=== PATIENT | female | born 1960 | race Caucasian/White ===

== ENCOUNTER 2016-06-29 18:47 | Inpatient (IN) | payer OTHER ==
[~2016-06-29] VITALS: Ht 167.6 cm; Wt 108.4 kg
[~2016-06-29 18:47] MED LIST: IBUP-1152 PO
--- NOTE | 2016-06-29 18:49 | ED.REPORT ---
HPI-Dyspnea / Wheezing Date of Service June 29, 2016 ED Provider: Prashanth Lynn Patient is a 55 year old female with a hx of COPD and HTN who presents to the ED via EMS complaining of shortness of breath onset 3 days ago but worse this morning. Her symptoms are exacerbated by any exertion. When medics arrived her O2 sats were in the 80's, increased to 90's with a DuoNeb, and decreased to the 80's again upon standing and walking to the stretcher. She denies nausea, diaphoresis, chest pain, or any other symptoms. She had a total of 2 DuoNebs en route. She saw her PCP on 3 days ago and was given a Zpack. She has never had an exacerbation this bad before. Nursing Notes Stated Complaint: SOB Nursing Notes Reviewed: Yes Allergies: Coded Allergies: Penicillins (Verified Allergy, Intermediate, Hives, 12/11/08) latex (Verified Allergy, Mild, Rash,redness, 12/11/08) Scheduled Beclomethasone Dipropionate (Qvar) 8.7 Gm Aer.w.adap 2 PUFF INHALATION BID 80 MCG Losartan/HCTZ 100-25 mg (Losartan/HCTZ 100-25 mg) 1 Each Tablet 1 TABLET PO DAILY Scheduled PRN Albuterol HFA (Proair HFA) 8.5 Gm Hfa.aer.ad 2 PUFFS INHALATION Q4H PRN PRN For Shortness of Breath General Time Seen by MD: 18:48 Chief Complaint Shortness of breath Hx Obtained From: Patient, EMS Arrived By: Ambulance Past Medical History Past Medical History Reports: COPD, Hypertension, Denies: Congestive heart failure, Coronary artery disease Smoking History Current Every Day Smoker Review of Systems Respiratory: Reports: Shortness of breath Cardiovascular: Denies: Chest pain, Palpitations Skin: Denies Diaphoresis Complete sys rev & neg: except as marked. GI: Denies: Nausea Physical Exam Initial Vital Signs Vital Signs (First) Date Time Temp Pulse Resp B/P Pulse Ox O2 Delivery O2 Flow Rate FiO2 06/29/16 19:05 115 22 93 Aerosol Mask 7 06/29/16 19:29 36.9 202/108 Initial VS: Reviewed Head / Eyes: Atraumatic, Normocephalic Abdomen / GI: Soft, Non-tender Skin: Warm, Dry Neurologic: Alert, Oriented, Nonfocal Psychiatric: Mood/affect normal, Behavior normal, Normal thought content General/Constitutional: Awake, Alert, Well developed Distress / Hydration: Positive: Distress moderate Behavior: Positive: Restless Neck: Supple, Full range of motion, No JVD Resp Distress / Stridor: Positive: Resp distress moderate, Speaks words only Wheezing / Retractions: Positive: Wheezing expiratory (Diffuse ) 2 word sentences Cardiovascular: Regular rhythm, Heart sounds NL, No gallop, No murmurs, No rubs Heart Rate / Rhythm: Positive: Tachycardia Lower Ext Edema: Positive: Bilateral 1+ Interpretation & Diagnostics Lab Results Interpretation Result Diagram: 06/29/164 06/29/164 Test 06/29/16 18:54 White Blood Count 22.5th/mm3 (3.8-10.1) Red Blood Count 4.29mil/mm3 (3.90-5.20) Hemoglobin 13.5g/dL (12.0-15.6) Hematocrit 41.9% (35.0-46.0) Mean Corpuscular Volume 97.7fL (81-100) Mean Corpuscular Hemoglobin 31.5pg (27.0-35.0) Mean Corpuscular Hemoglobin Concent 32.2% (32.0-37.0) Red Cell Distribution Width 13.1% (12.3-15.4) Platelet Count 333bil/L (150-400) Neutrophils (%) (Auto) 46.3% (40-74) Lymphocytes (%) (Auto) 41.3% (14-46) Monocytes (%) (Auto) 9.8% (4-12) Eosinophils (%) (Auto) 0.8% (0-5) Basophils (%) (Auto) 0.6% (0-3) Hold Purple Top Tube Received (Received) Sodium Level 138mEq/L (134-144) Potassium Level 4.6mEq/L (3.5-5.2) Chloride Level 99mEq/L (97-108) Carbon Dioxide Level 22mmol/L (18-29) Blood Urea Nitrogen 23mg/dL (6-24) Creatinine 0.72mg/dL (0.57-1.00) Estimat Glomerular Filtration Rate 121mL/min (>59) Glucose Level 117mg/dL (60-99) Calcium Level 9.6mg/dL (8.5-10.1) Phosphorus Level 4.9mg/dL (2.5-4.9) Total Bilirubin 0.2mg/dL (0.0-1.2) Aspartate Amino Transf (AST/SGOT) 31U/L (0-50) Alanine Aminotransferase (ALT/SGPT) 38U/L (0-32) Alkaline Phosphatase 64U/L (25-150) Troponin T < 0.010ug/L (0.0-0.011) Pro-B-Type Natriuretic Peptide 350.1pg/mL (0-249) Total Protein 7.5g/dL (6.4-8.4) Albumin 4.1g/dL (3.4-5.0) Hold [place] Top Tube Received (Received) Lab Results Interpretation: Flu neg ECG Interpretation ECG Interpretation: Sinus tachy rate 114 Time: 18:56 Interpreted by: ED physician X-Ray Chest Interpretation Chest Xray Interpretation: IMPRESSION: No acute process. Dictated by: Nedra Torres M.D. on 06/29/2016 at 19:17 Approved by: Nedra Torres M.D. on 06/29/2016 at 19:17 View: Portable, 1 view Interpretation / Wet Read by: Interpret - Radiologist Re-Eval/Medical Decision Med Decision/Clinical Course She came to the emergency department in severe distress. Initial measures to ameliorate her symptoms were only modestly effective. We administered some narcotic and a benzodiazepine to try to calm her coughing and anxiety associated with breathlessness and her severe hypertension. Ultimately magnesium sulfate was administered. The venous blood gas was modestly reassuring. Epinephrine, though prepared, was never administered. Finally, she seemed somewhat modestly improved at the time she was moved to the floor. Re-Evaluation/Progress #1: Time of Eval: 19:19 Re-Evaluation/Progress Note: Rechecked patient. She is feeling a little bit better since she arrived. Re-Evaluation/Progress #2: Time of Eval: 19:46 Re-Evaluation/Progress Note: Rechecked patient. Her O2 saturation is 88-90 on 8L. Her cough is impacting her breathing. Re-Evaluation/Progress #3: Time of Eval: 20:09 Re-Evaluation/Progress Note: Rechecked pt. She is slightly improved. Holding the epi and administering Mag Re-Evaluation/Progress #4: Time of Eval: 20:33 Re-Evaluation/Progress Note: Rechecked pt. Discussed plan for admission. Patient understands and agrees with plan. All questions addressed at this time. Consultation : Referral / Consult Name: Dorothy Jackson DO Consulted With: Hospitalist Call Returned at: 20:40 Clinical Research Management Associate: Will see patient, Agrees with eval, Agrees with plan, Accepts admit Note: Discussed pt case. Accepts admit. Counseled Regarding: Diagnosis, Lab results, Need for admission Discharge & Departure Impression: Primary Impression: COPD exacerbation Disposition: ADMITTED TO HOSPITAL Discharge Condition All VS Reviewed: Yes Condition: Stable Crit Care Except Billable Proc Time Spent: 30-74 minutes Services Performed: Patient management by me, Time spent at bedside, Reviewing test results, Reviewing imaging, Discussing patient care, Documentation in record Scribe Attestation Portions of this note were transcribed by Oneil Farris. I, Dr. Lynn personally performed the history, physical exam and medical decision-making; I reviewed and confirmed the accuracy of the information in the transcribed note. Signed by: Oneil Farris 06/29/162041 Prashanth Lynn MD June 29, 2016 18:48 ONEIL FARRIS June 29, 2016 18:57
[2016-06-29] MEDS ORDERED: MethylprednisoLONE Sodium Succinate 62.5 mg/mL 2 mL Inj ONE (18:50)
[2016-06-29] MEDS ORDERED: Albuterol 2.5 mg/3 mL Inhalation Solution NEB ONE (18:55)
[2016-06-29] MEDS ORDERED: MethylprednisoLONE Sodium Succinate 62.5 mg/mL 2 mL Inj IVPUSH ONE (18:55)
[2016-06-29 19:01] LABS: BASOPHILS % (AUTO) 0.6 % (0-3); EOSINOPHILS % (AUTO) 0.8 % (0-5); MONOCYTES % (AUTO) 9.8 % (4-12); Mean Corpuscular Hemoglobin 31.5 pg (27.0-35.0); Mean Corpuscular Volume 97.7 fL (81-100); NEUTROPHILS % (AUTO) 46.3 % (40-74); Platelet Count 333 bil/L (150-400)
[2016-06-29 19:05] VITALS: PULSE 115; RESP 22; O2SAT 93
--- NOTE | 2016-06-29 19:19 | DRSVH ---
PROCEDURE: X-RAY CHEST ONE VIEW, PORTABLE ([id number]) INDICATIONS: dyspnea TECHNIQUE: One view of the chest was acquired. COMPARISON: [facility], , CHEST 2VW, 02/29/2012, 10:11. FINDINGS: Surgical changes and devices: None. Lungs and pleura: No pleural effusions or pneumothorax. Lungs are clear. Mediastinum: Mediastinal contours appear normal. Heart size is normal. Bones and chest wall: No suspicious bony lesions. Overlying soft tissues appear unremarkable. IMPRESSION: No acute process. Dictated by: Nedra Torres M.D. on 06/29/2016 at 19:17 Approved by: Nedra Torres M.D. on 06/29/2016 at 19:17
[2016-06-29 19:29] VITALS: BP 202/108; PULSE 133; RESP 38; O2SAT 92
[2016-06-29 19:35] LABS: TROPONIN T < 0.010 ug/L (0.0-0.011)
[2016-06-29] MEDS ORDERED: Magnesium Sulf 2 Gm/50mL Water 2 GM in IV Premix 1 EACH IV ONE (19:50)
--- NOTE | 2016-06-29 20:05 | ABG ---
DateTimeAnalyzed 19:58:00 -_ pH ____7.295 - pCO2 ___54.6__ -mmHg pO2 ___53.2__ -mmHg HCO3- ___25.7__ -mmol/L ABE ___-1.1__ -mmol/L tHb ___13.3__ -g/dL O2Hb ___80.2__ -% COHb ____2.7__ -% MetHb ____1.3__ -% sO2 ___83.5__ -% FIO2 ___40.0__ -% Drawn By _LAB TECH - Date/Time Notified____ 20:04:00 -_ Notified Whom DR KESHIA - B 752 -mmHg tO2 ___15.0__ -Vol% Hola test N/A -
[2016-06-29] MEDS ORDERED: Ondansetron 2 mg/mL 2 mL Inj IVPUSH PRN (20:50)
[2016-06-29] MEDS ORDERED: Alum-Mag Hydrox-Simeth 30 mL Suspension PO PRN (20:50)
[2016-06-29] MEDS ORDERED: Polyethylene Glycol (PEG) 17 Gm Powder PO PRN (20:50)
[2016-06-29] MEDS ORDERED: Senna-Docusate 8.6-50 mg Tablet PO PRN (20:50)
[2016-06-29] MEDS ORDERED: BECL8.7A6 INHALATION (21:34)
[2016-06-29] MEDS ORDERED: ALBU8.5H2 INHALATION (21:35)
[2016-06-29] MEDS ORDERED: LOSA1TAB70 PO (21:35)
[2016-06-29 22:02] VITALS: BP 148/78; PULSE 117; RESP 22; O2SAT 94
[2016-06-29 22:20] VITALS: BP 148/80; PULSE 115; RESP 17; O2SAT 95
--- NOTE | 2016-06-29 22:20 | PCM.HPMED ---
Subjective Date of Service June 29, 2016 Primary Provider: Admitting Physician: Primary Care Physician: Mg Valenzuela MD Attending Physician: Admit Status: From the Emergency Department Chief Complaint: Shortness of breath History of Present Illness: Mrs. Lakeisha Alvarenga is a pleasant 55-year-old perimenopausal female with a past medical history significant for hypertension, COPD and asthma, and sleep apnea with nightly CPAP use, who presents to the [facility] emergency Department by way of EMS today for shortness of breath and cough. She reports increasing cough and shortness of breath since 06/26/2016. She visited her primary care physician on Wednesday who prescribed a prednisone taper starting at 40 mg daily as well as a Z-Rohan. Throughout the weekend her cough and shortness of breath increased in severity until today she felt extreme dyspnea and called EMS. Her losartan and hydrochlorothiazide 100 mg daily was recently discontinued due to increased cough. She has a history of cough with lisinopril roughly a year ago at which point losartan and hydrochlorothiazide were prescribed at 50 mg daily, unknown hydrochlorothiazide dose at this time and her blood pressure was maintained roughly systolics around 148/95. She is a long auto hauler for [employer] and had her DOT physical coming up in her physician increased her losartan dose from 50 mg to 100 mg daily on July 02. Since that point she developed increasing cough similar to her previous bouts with lisinopril and on Wednesday of last week 06/25/2016, her PCP stopped her antihypertensive medication. Immediately following this she developed worsening nonproductive cough, wheezing, extreme lower extremity edema to the knees. She has Qvar and pro-air for COPD and asthma and has increased her use of albuterol the last 5 days from 2 puffs per day on average to 6-10 puffs per day. She has a long history of tobacco use most recently a half pack per day and a long history of 2 packs per day however she has not had a cigarette since of last week. She reports hot flashes that she claims is from menopause, chest pain from increased coughing, shortness of breath and cough, dizziness and some mild change in vision these last 4 days. She denies fever, chills, nausea, vomiting, change in appetite, cardiac or musculoskeletal chest pain, abdominal pain, abnormal diarrhea or constipation, dysuria. She denies sick contacts. She does not have a nanny babysitter or trade facilitator. In the emergency department she received several rounds of albuterol nebulizers , 6 mg morphine, and Ativan, methylprednisolone 125 mg, On admission she was afebrile tachycardic and tachypneic at 115 and 22, pulse ox of 93 on 7 L O2 mask. Review of Systems: A comprehensive review of systems was conducted with the patient and found to be negative except as above in the History of Present Illness. Allergies Coded Allergies: Penicillins (Verified Allergy, Intermediate, Hives, 12/11/08) latex (Verified Allergy, Mild, Rash,redness, 12/11/08) lisinopril (Verified Adverse Reaction, Mild, Dry cough, 06/29/16) [facility] Reports: COPD, Hypertension, Denies: Congestive heart failure, Coronary artery disease Surgical History Surgical history appendectomy in 1974, precancerous lesion on the vulva removed in 2008 and placement of bladder sling. Thus in the emergency department she received Family History Family history she was adopted by her paternal grandparents, her grandmother at the age of 101 with a history of breast cancer macular degeneration, her grandfather of leukemia at 74. 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 well-developed, well-nourished, appropriately interactive HEENT: Normocephalic, atraumatic. External ears without defect. Pupils equal, round, and reactive to light and accommodation. Anicteric sclerae, moist conjunctivae, and no lid lag. Oropharynx free of erythema and cobble stoning with moist mucosa. Neck: Supple with full range of motion. No jugular venous distension. No bruits. No lymphadenopathy or thyromegaly. Cardiovascular: Tachycardic rate and regular rhythm no murmurs, rubs, or gallops appreciated Pulmonary: Diffuse crackles and wheezes bilaterally, no rhonchi. Normal respiratory effort with no use of accessory muscles. GI: Bowel tones present. Soft and obese, nontender, nondistended. No hepatosplenomegaly or masses appreciated. Extremities: No clubbing, cyanosis, mild 1+ lower extremity edema bilaterally, no lymphadenopathy appreciated. Skin: Normal temperature, turgor, and texture; sternal erythematous macular rash measuring roughly 6 cm x 6 cm, no ulcers, or subcutaneous nodules appreciated. Lymph: no cervical or supraclavicular lymphadenopathy Neurological: Cranial nerves grossly intact. Normal muscle strength, tone, and bulk. Reflexes, coordination, and sensory function within normal limits. No known gait impairment. Psychiatric: Normal mood and affect. Alert and oriented to person, place, and time. Lab and Diagnostics Result Diagram: 06/29/16185306/29/161853 X-Rays, CTs and MRIs X-RAY CHEST ONE VIEW, PORTABLE IMPRESSION: No acute process. Approved by: Nedra Torres M.D. on 06/29/2016 at 19:17 Additional Diagnostics: ABG DateTimeAnalyzed 19:58:00 -_ pH ____7.295 - pCO2 ___54.6__ -mmHg pO2 ___53.2__ -mmHg HCO3- ___25.7__ -mmol/L Assessment & Plan Mrs. Lakeisha Alvarenga is a 55-year-old female presents today for a 5 day history of progressive shortness of breath, with nonproductive cough. Past medical history significant for hypertension, sleep apnea, COPD and asthma. She recently discontinued her 100 mg losartan/hydrochlorothiazide last Wednesday and progressively developed lower extremity edema wheezing cough and shortness of breath. She does not currently have a trade facilitator or nanny babysitter. She denies fever, chills, nausea, vomiting, cardiac or musculoskeletal chest pain, abdominal pain, constipation, diarrhea, dysuria. She reports menopausal hot flashes, facial [place] flushing intermittently, nonproductive cough, shortness of breath not resolved with albuterol use, lower extremity edema. # Acute Hypoxic Respiratory Failure, present on admission. Improving. - Likely combination of COPD exacerbation and congestive heart failure, less likely bacterial vs viral pneumonia. - ABG per above. - Chest x-ray as above. - Sputum sample once patient can produce sputum. - One time CAP coverage ABx. Ceftriaxone 2 gm IV Q24hrs, patient completed Zpack yesterday. - Viral PCR pending. - Influenza negative. - S. Pneumo/Legionella Ur Antigen pending. - Procalcitonin ordered.If elevated can trend. - Troponin negative, BNP 350.1. - Continue Oxy mask to keep O2 sats 88-92% - We will start one time Lasix 20 mg IV. - Consider ECHO tomorrow. # Acute COPD Exacerbation , present on admission. Active. - Continue IV methyl Pred 125 mg every 8 hours for one day we will transition to prednisone tomorrow. - Continues Q 4 H scheduled duo nebs with Q2 H albuterol PRN. #Elevated BNP, acute, POA -no history of CHF -given lasix x1 on admission -ECHO ordered # Hypertension, present on admission. Active. - Patient was 202/108 in the emergency department, with administration of morphine and Ativan patient's blood pressure dropped roughly 113/80, currently without antihypertensives patient's blood pressure is 148/85. - Restart losartan/hydrochlorothiazide at 50 mg daily. # Morbid obesity, present on admission. Active. -BMI 40 - General diet. - Recommend Physical therapy. # Sleep apnea, present on admission. Controlled. - CPAP at night. He is Lasix for so she does have a little prolapse she had a sling and nose are # Leukocytosis, present on admission. Active. - WBC 22.5 however patient's been on a prednisone taper since Wednesday. # Urinary incontinence, present on admission. Active. - Patient has stress incontinence from coughing. - patient had a bladder sling in 2008 and claims it up or out in 2011. Acetaminophen when necessary for pain Ondansetron when necessary for nausea Senna and docusate when necessary for constipation Hold heparin for now, SCDs in place. Disposition: Discharge dependent upon respiratory status, we will discharge home when medically stable. Patient has been admitted under inpatient status due to complexity of illness and will require >2 midnights. Pain Evaluation: Adequate Pain Control Resuscitation Status: CPR: Attempt Resuscitation Attending Statement The patient was seen and examined together with house staff on 06/29/2016 and I agree with the history, exam and plan as outlined in the note above. TROY MONTEIRO DO June 29, 2016 20:57 Dorothy Jackson DO June 30, 2016 04:07
[2016-06-29] MEDS ORDERED: Furosemide 10 mg/mL 2 mL Inj IVPUSH ONE (22:25)
[2016-06-29] MEDS: cefTRIAXone Inj 2,000 MG in Dextrose 5% Minibag Plus 50 ML IV SCH (23:29)
[2016-06-29 23:30] VITALS: BP 138/74; PULSE 112; RESP 18; O2SAT 96
[2016-06-29 23:41] VITALS: RESP 19; O2SAT 96
[2016-06-29] MEDS: MethylprednisoLONE Sodium Succinate 62.5 mg/mL 2 mL Inj IVPUSH SCH (23:43)
[2016-06-30] VITALS (11 sets, daily range): BP systolic 155–179; BP diastolic 73–90; PULSE 98–129; RESP 16–24; O2SAT 94–96
[2016-06-30] MEDS: Albuterol-Ipratropium 3 mL Inhalation Solution NEB SCH ×6 (01:23→21:07)
--- NOTE | 2016-06-30 03:51 | NUR ---
5 - Admit Patient admitted to 2011, no distress noted. On O2 via Oxymask at 6L/min, adnission screening completed and meds given, patient voided on bedpan multiple times after Lasix given, c/o pain 5-10/10 in back of neck down both arms, Morphine given later on and patient denies any pain at 0350 this AM, resting and calm, BP still slightly elevated and HR decreasing, Afebrile, able to make needs known, tolerating CPAP at pressure 8. Addendum: 06/30/16 at 0357 by TRAY TRINIDAD RN Amended: Links added.
[2016-06-30 07:07] LABS: BASOPHILS % (AUTO) 0.2 % (0-3); EOSINOPHILS % (AUTO) 0 % (0-5); MONOCYTES % (AUTO) 0.8 % (4-12); Mean Corpuscular Hemoglobin 31.7 pg (27.0-35.0); Mean Corpuscular Volume 97.3 fL (81-100); NEUTROPHILS % (AUTO) 77.9 % (40-74); Platelet Count 299 bil/L (150-400)
[2016-06-30] MEDS: MethylprednisoLONE Sodium Succinate 62.5 mg/mL 2 mL Inj IVPUSH SCH ×2 (09:05→16:22)
--- NOTE | 2016-06-30 09:50 | DRSVH ---
PROCEDURE: X-RAY CHEST ONE VIEW, PORTABLE ([id number]) INDICATIONS: COPD / CHF TECHNIQUE: One view of the chest was acquired. COMPARISON: [facility], CR, CHEST 2VW, 02/29/2012, 10:11. [facility], CR, XR CHEST 1VW (PORTABLE), 06/29/2016, 18:58. FINDINGS: Surgical changes and devices: None. Lungs and pleura: No pleural effusions or pneumothorax. Lungs are clear. Mediastinum: Mediastinal contours appear normal. Heart size is normal. Bones and chest wall: No suspicious bony lesions. Overlying soft tissues appear unremarkable. IMPRESSION: No acute cardiopulmonary disease. Dictated by: Melo Singh RRA Interpreted: Venita Sanchez MD on 06/30/2016 at 9:49 Transcribed by: MARIA INES on 06/30/2016 at 9:50 Approved by: Venita Sanchez MD, PhD on 06/30/2016 at 15:04
--- NOTE | 2016-06-30 11:55 | NUR ---
transfer/oxygenation 1000 transfer orders received. Pt now PCC level of care. Pt remains SOB with minimal exertion on 6L oxymask. Desats to mid 80's with exertion and coughing. Frequent loud bronchospastic cough. Wheezes audible without a stethoscope.
--- NOTE | 2016-06-30 13:15 | PCM.PNMED ---
Subjective Date of Service June 30, 2016 Subjective Mrs. Lakeisha Alvarenga is a 55-year-old lady with a history of hypertension, COPD, asthma, and sleep apnea with nightly CPAP use who presented with a five day history of progressive shortness of breath and nonproductive cough. Admitted for acute hypoxic respiratory failure, possible COPD exacerbation and hypertensive urgency. Patient admitted to CCU overnight on 6L oxymask and per nursing, tolerated CPAP. Today, she states that she is feeling somewhat better in that her cough is more productive. She reports ongoing wheezing but denies chest pain, abdominal pain, fever, chills, urinary symptoms, diarrhea or constipation. Exam Vital Signs Vital Sign - Last Date Time Temp Pulse Resp B/P Pulse Ox O2 Delivery O2 Flow Rate FiO2 06/30/16 04:43 101 16 155/73 95 30 06/30/16 03:48 36.7 CPAP 06/29/16 22:20 6.00 Intake and Output 06/29/16 06/29/16 06/30/16 Cumulative From/Thru 15:00 23:00 07:00 06/29/16 19:29 - 06/30/16 04:26 Intake Total 50 ml 540 ml 590 ml Output Total 1875 ml 1875 ml Balance 50 ml -1335 ml -1285 ml Intake Oral 480 ml 480 ml IV Total 50 ml 60 ml 110 ml Output Urine Total 1875 ml 1875 ml # Voids 4 4 # Bowel Movements 0 0 Exam General: Well developed, well nourished female in no acute distress. Appropriately interactive. HEENT: Normocephalic, atraumatic. Pupils equal, round, and reactive to light and accommodation. Anicteric sclerae. Oral mucosa moist/pink Neck: Supple, nontender, no JVD, bruits, lymphadenopathy or thyromegaly. Cardiovascular: Regular rate and regular rhythm no murmurs, rubs, or gallops appreciated Pulmonary: Diffuse crackles and wheezes bilaterally, no rhonchi. Normal respiratory effort with no use of accessory muscles. GI: Bowel tones present. Soft and obese, nontender, nondistended. No hepatosplenomegaly or masses appreciated. Extremities: Mild 1+ lower extremity edema bilaterally, no cyanosis or clubbing. Skin: Warm, well perfused, anterior chest erythematous, no ulcerations. Neurological: Cranial nerves grossly intact, no focal deficit. Alert and oriented to person, place and time. Psychiatric: Normal mood and affect. IVs and Medications Medications Reviewed: Medications were reviewed in detail Lab and Diagnostics Laboratory Tests Test 06/29/16 18:54 06/29/16 23:10 06/30/16 05:45 White Blood Count 22.5th/mm3 (3.8-10.1) 12.8th/mm3 (3.8-10.1) Red Blood Count 4.29mil/mm3 (3.90-5.20) 4.07mil/mm3 (3.90-5.20) Hemoglobin 13.5g/dL (12.0-15.6) 12.9g/dL (12.0-15.6) Hematocrit 41.9% (35.0-46.0) 39.6% (35.0-46.0) Mean Corpuscular Volume 97.7fL (81-100) 97.3fL (81-100) Mean Corpuscular Hemoglobin 31.5pg (27.0-35.0) 31.7pg (27.0-35.0) Mean Corpuscular Hemoglobin Concent 32.2% (32.0-37.0) 32.6% (32.0-37.0) Red Cell Distribution Width 13.1% (12.3-15.4) 13.1% (12.3-15.4) Platelet Count 333bil/L (150-400) 299bil/L (150-400) Neutrophils (%) (Auto) 46.3% (40-74) 77.9% (40-74) Lymphocytes (%) (Auto) 41.3% (14-46) 20.6% (14-46) Monocytes (%) (Auto) 9.8% (4-12) 0.8% (4-12) Eosinophils (%) (Auto) 0.8% (0-5) 0% (0-5) Basophils (%) (Auto) 0.6% (0-3) 0.2% (0-3) Hold Purple Top Tube Received (Received) Sodium Level 138mEq/L (134-144) 138mEq/L (134-144) Potassium Level 4.6mEq/L (3.5-5.2) 4.7mEq/L (3.5-5.2) Chloride Level 99mEq/L (97-108) 98mEq/L (97-108) Carbon Dioxide Level 22mmol/L (18-29) 24mmol/L (18-29) Blood Urea Nitrogen 23mg/dL (6-24) 18mg/dL (6-24) Creatinine 0.72mg/dL (0.57-1.00) 0.63mg/dL (0.57-1.00) Estimat Glomerular Filtration Rate 121mL/min (>59) 142mL/min (>59) Glucose Level 117mg/dL (60-99) 172mg/dL (60-99) Calcium Level 9.6mg/dL (8.5-10.1) 9.2mg/dL (8.5-10.1) Phosphorus Level 4.9mg/dL (2.5-4.9) Total Bilirubin 0.2mg/dL (0.0-1.2) 0.2mg/dL (0.0-1.2) Aspartate Amino Transf (AST/SGOT) 31U/L (0-50) 25U/L (0-50) Alanine Aminotransferase (ALT/SGPT) 38U/L (0-32) 43U/L (0-32) Alkaline Phosphatase 64U/L (25-150) 64U/L (25-150) Troponin T < 0.010ug/L (0.0-0.011) Pro-B-Type Natriuretic Peptide 350.1pg/mL (0-249) Total Protein 7.5g/dL (6.4-8.4) 6.9g/dL (6.4-8.4) Albumin 4.1g/dL (3.4-5.0) 4.0g/dL (3.4-5.0) Hold [place] Top Tube Received (Received) Result Diagram: 06/29/16 1854 06/29/16 1854 Microbiology 06/29/16 MRSA (PCR)- pending 06/29/16 Streptococcus pneumoniae Ag Screen- pending. X-Rays, CTs and MRIs (06/29/16) X-RAY CHEST ONE VIEW, PORTABLE IMPRESSION: No acute process. Dictated and approved by: Nedra Torres M.D. on 06/29/2016 at 19:17 (06/30/16) X-RAY CHEST ONE VIEW, PORTABLE Additional Diagnostics ABG DateTimeAnalyzed 19:58:00 -_ pH ____7.295 - pCO2 ___54.6__ -mmHg pO2 ___53.2__ -mmHg HCO3- ___25.7__ -mmol/L Assessment & Plan Mrs. Lakeisha Alvarenga is a 55-year-old lady with a history of hypertension, COPD, asthma, and sleep apnea with nightly CPAP use who presented with a five day history of progressive shortness of breath and nonproductive cough. Admitted for acute hypoxic respiratory failure, possible COPD exacerbation and hypertensive urgency. Acute hypoxic respiratory failure, present on admission. Improving. -Likely combination of COPD exacerbation and possible congestive heart failure ( proBNP slightly elevated.), less likely infectious. -Chest xray with no acute process. -Procalcitonin, S. pneumoniae/Legionella and respiratory viral PCR all negative. -Blood/sputum cultures- pending -Received ceftriaxone 2gmIV in the emergency dept and completed Zpack yesterday (06/28) -Titrate supplemental oxygen as tolerated, goal O2 sats 88-92% -Duonebs Q4hrs, albuterol Q2hrs as needed. -Echocardiogram- pending. Acute COPD Exacerbation, present on admission. Active. -Patient received IV methyl Pred 125 mg every 8 hours overnight. -Transition to oral prednisone, 40mg daily for 5 days. -Continue Duonebs Q4hrs, albuterol Q2hs as needed. Concern for congestive heart failure. Present on admission. Active. -No known history of heart failure and proBNP elevated on admission (351). Patient received 20mg IV furosemide on admission. -Echocardiogram- pending. Hypertensive Urgency, acute on chronic. Present on admission. Active. -Likely secondary to recent medication changes. Patient previously treated with Lisinopril (discontinued due to cough) and recently Losartan/HCTZ (also discontinued recently due to cough). -BP 202/108 at presentation and dropped to 113/80 following Morphine and Lorazepam. After which she remained hypertensive with SBPs consistently in 140s- 160. Losartan/hydrochlorothiazide started at 50mg daily (06/29). -Continue losartan/hctz -Revaluate medications following Echo results. Leukocytosis, acute. Present on admission. Active. -Likely secondary to stress response and recent outpatient steroids. Infection appears less likely with negative procalcitonin, negative respiratory panel and urine S. pneumo/Legionella antigens. -WBC 22.5 at presentation and down to 12.8 this morning (06/30) -Follow CBC Obstructive sleep apnea, chronic. Present on admission. Controlled. -Patient on home CPAP, continue supplemental O2 as needed and CPAP at night. Morbid obesity, chronic. Present on admission. Active. -BMI 40 -Counseled patient regarding lifestyle modifications. -Recommend close outpatient followup. Nicotine addiction, chronic. Present on admission. Active -Patient reports 1/2ppd -Nicotine patch -Counseled regarding cessation -Recommend close outpatient followup. Acetaminophen when necessary for pain Ondansetron when necessary for nausea Senna and docusate when necessary for constipation Disposition: Patient will likely discharge home in 1-2 days pending improvement in respiratory status. Pain Evaluation: Adequate Pain Control VTE Mechanical Devices: Intermittant Pneumatic CD Resuscitation Status: CPR: Attempt Resuscitation Attending Statement The patient was seen and examined together with Dr. Barrios on 06/30/2016 and I agree with the history, exam and plan as outlined in the note above. . Donna Barrios DO June 30, 2016 07:01 Jerzy Chambers MD June 30, 2016 16:21
--- NOTE | 2016-06-30 13:23 | DRSVH ---
Study location field not populated with appropriate location Echocardiogram Report Name: EDUAR ARGUETA EStudy Date : 06/30/2016 Height: 66 in Hospital Weight: 247 lb Gender: Female BSA: 2.2 m2 : 1960 Age: 55 yrs BP: 160/83 mmHg Reason For Study: Dyspnea Ordering Physician: HOSPITALIST SV Performed By: Meri Hackett Interpretation Summary Normal both left and right ventricle size and function. The ejection fraction is estimated to be 65-70%. Mild tricuspid regurgitation. The right ventricular systolic pressure is estimated at 49 mmHg assuming a right atrial pressure of 8 mm Hg. Moderate pulmonary hypertension. Procedure: A two-dimensional transthoracic echocardiogram with color flow and Doppler was performed. There is no prior echocardiogram noted for this patient. The study quality was technically adequate. The patient was in sinus tachycardia with heart rates between 94-122 bpm during the exam. Left Ventricle: The left ventricle is normal in size. There is normal left ventricular wall thickness. The ejection fraction is estimated to be 65-70%. Left ventricular wall motion is normal. Assessment of diastolic parameters indicates normal left ventricular diastolic function and normal filling pressures. Right Ventricle: The right ventricle is normal in size and function. Atria: The left atrial size is normal. Right atrial size is normal. The interatrial septum is intact with no evidence for an atrial septal defect. Mitral Valve: The mitral valve is normal in structure and function. There is trace mitral regurgitation. Aortic Valve: The aortic valve is grossly normal. The aortic valve opens well. No aortic regurgitation is present. Tricuspid Valve: The tricuspid valve is normal in structure and function. There is mild tricuspid regurgitation. The right ventricular systolic pressure is estimated at 49 mmHg assuming a right atrial pressure of 8 mm Hg. There is moderate pulmonary hypertension. Pulmonic Valve: The pulmonic valve is normal in structure and function. There is trace pulmonic regurgitation. Great Vessels: The aortic root is normal size. The dimensions of the ascending aorta are normal. The ascending aorta could not be visualized. The pulmonary artery is normal size. The IVC is of normal diameter and collapses less than 50% with a sniff. This suggests a right atrial pressure of 8 mm Hg. Pericardium/ Pleura There is no pericardial effusion. There is no pleural effusion. MMode/2D Measurements & Calculations LVIDd: 4.9 cm RA long axis LVOT diam: 2.0 cm LVIDs: 2.5 cm LA A2 area: 14.6 cm AoV Opening FS: 49.1 % LA A4 area: 14.9 cm RA area EPSS: 0.26 cm LA length (vol) Ao root diam IVSd: 0.98 cm : 13.1 cm LVPWd: 0.76 cm LA vol: 37.7 ml RA vol Ao Arch Diam (Prox LA vol index : 33.6 ml Trans): 2.2 cm RA IVC diam: 2.0 cm : 15.4 mm2 LV jama. diameter/BSA LV sys. diameter/BSA RVD1 (basal) RVD2 (mid): 2.5 cm (cm/m^2): 2.2 (cm/m^2): 1.1 Doppler Measurements & Calculations Ao V2 max MV E max juno MV E/A: 1.1 TR max juno : 176.4 cm/sec : 120.4 cm/sec Med Peak E' Juno : 318.7 cm/sec Ao max PG MV A max juno TR max PG : 12.4 mmHg : 105.8 cm/sec E/E' med: 10.9 : 40.6 mmHg Ao mean PG MV P1/2t: 63.1 msec Lat Peak E' Juno PA V2 max : 5.7 mmHg : 99.0 cm/sec E/E' lat: 9.8 PA mean PG E/e' average: 10.3 PA Accel Time : 0.16 sec MV dec time MV P1/2t max juno Ao V2 mean PA V2 mean : 0.22 sec : 108.2 cm/sec : 78.4 cm/sec MVA(P1/2t): 3.5 cm2 Ao V2 VTI: 41.4 cm Electronically signed by: Nusrat Lozano on Reading Physician:06/30/2016 01:23 PM
[2016-06-30 13:46] LABS: APPEARANCE,URINE HAZY (CLEAR,HAZY); COLOR,URINE STRAW (YELLOW); OCCULT BLOOD,URINE NEGATIVE (NEGATIVE); PH,URINE 5.5 (5.0-8.0); UROBILINOGEN,URINE NORMAL (NORMAL)
--- NOTE | 2016-06-30 14:28 | NUR ---
Evaluation completed. Please go to "Notes" then click on "Assessments and Notes" (bottom left corner of screen). Then select appropriate discipline tab on top of screen.
--- NOTE | 2016-06-30 17:24 | NUR ---
report report given to Virginie Land Pt transferred to [facility].
[2016-06-30] MEDS: cefTRIAXone Inj 2,000 MG in Dextrose 5% Minibag Plus 50 ML IV SCH (21:49)
[2016-07-01] VITALS (17 sets, daily range): BP systolic 124–156; BP diastolic 74–88; PULSE 76–121; RESP 16–30; O2SAT 92–98
[2016-07-01] MEDS: Albuterol-Ipratropium 3 mL Inhalation Solution NEB SCH ×6 (00:24→19:53)
[2016-07-01 03:42] LABS: BASOPHILS % (AUTO) 0.1 % (0-3); EOSINOPHILS % (AUTO) 0.2 % (0-5); MONOCYTES % (AUTO) 4.9 % (4-12); Mean Corpuscular Hemoglobin 31.7 pg (27.0-35.0); Mean Corpuscular Volume 97.6 fL (81-100); NEUTROPHILS % (AUTO) 77.1 % (40-74); Platelet Count 311 bil/L (150-400)
--- NOTE | 2016-07-01 05:58 | NUR ---
Respiratory Pt SpO2 93-95% on 4L oxymask while awake and pt able to tolerate CPAP while sleeping. Pt continues to have brocospastic cough. MD notified and orders for tesslon pearls given. Pt states that these work well for her. pt independent in room and tolerating well. VSS and Tele SR/T 90's to 120's.
[2016-07-01] MEDS: Albuterol 2.5 mg/3 mL Inhalation Solution NEB PRN ×2 (09:15→14:46)
--- NOTE | 2016-07-01 11:16 | PCM.PNMED ---
Subjective Date of Service July 01, 2016 Subjective Mrs. Lakeisha Alvarenga is a 55-year-old lady with a history of hypertension, COPD, asthma, and sleep apnea with nightly CPAP use who presented with a five day history of progressive shortness of breath and nonproductive cough. Admitted for acute hypoxic respiratory failure, possible COPD exacerbation and hypertensive urgency. Patient is resting comfortably this morning with CPAP mask in place. She states that she did not get much sleep overnight but overall feels that she is doing better. She reports right lower quadrant abdominal pain only with coughing and denies bulging, nausea, vomiting, diarrhea or constipation. She was transferred to [facility] yesterday afternoon and maintained oxygen sats in mid 90s on 4L oxymask while awake and CPAP overnight. Per nursing, patient continues to be tachycardic at times mostly when coughing with heart rate 90s- 120s. Exam Vital Signs Vital Sign - Last Date Time Temp Pulse Resp B/P Pulse Ox O2 Delivery O2 Flow Rate FiO2 07/01/16 05:27 36.6 121 30 156/79 93 OxyMask 4.00 06/30/16 04:43 30 Intake and Output 06/30/16 06/30/16 07/01/16 Cumulative From/Thru 15:00 23:00 07:00 06/29/16 19:29 - 07/01/16 06:56 Intake Total 200 ml 400 ml 1190 ml Output Total 800 ml 2675 ml Balance 200 ml -400 ml -1485 ml Intake Oral 200 ml 400 ml 1080 ml IV Total 110 ml Output Urine Total 800 ml 2675 ml # Voids 2 1 7 # Bowel Movements 0 Exam General: Well developed, well nourished female in no acute distress. Appropriately interactive. HEENT: Normocephalic, atraumatic. Pupils equal, round, and reactive to light and accommodation. Facial flushing noted, Anicteric sclerae. Oral mucosa moist/ pink Neck: Supple, nontender, no JVD, bruits, lymphadenopathy or thyromegaly. Cardiovascular: Regular rate and regular rhythm no murmurs, rubs, or gallops appreciated Pulmonary: Lung sounds coarse with diffuse wheezing bilaterally, no crackles or rhonchi. Normal respiratory effort with no use of accessory muscles on 2L oxymask. GI: Bowel tones present. Soft and obese, nontender, nondistended. No hepatosplenomegaly or masses appreciated. Extremities: Mild non-pitting lower extremity edema bilaterally, no cyanosis or clubbing. Skin: Warm, well perfused, anterior chest erythematous, no ulcerations. Neurological: Cranial nerves grossly intact, no focal deficit. Alert and oriented to person, place and time. Psychiatric: Normal mood and affect. IVs and Medications Medications Reviewed: Medications were reviewed in detail Lab and Diagnostics Laboratory Tests Test 07/01/16 03:10 White Blood Count 23.8th/mm3 (3.8-10.1) Red Blood Count 4.20mil/mm3 (3.90-5.20) Hemoglobin 13.3g/dL (12.0-15.6) Hematocrit 41.0% (35.0-46.0) Mean Corpuscular Volume 97.6fL (81-100) Mean Corpuscular Hemoglobin 31.7pg (27.0-35.0) Mean Corpuscular Hemoglobin Concent 32.4% (32.0-37.0) Red Cell Distribution Width 13.0% (12.3-15.4) Platelet Count 311bil/L (150-400) Neutrophils (%) (Auto) 77.1% (40-74) Lymphocytes (%) (Auto) 17.1% (14-46) Monocytes (%) (Auto) 4.9% (4-12) Eosinophils (%) (Auto) 0.2% (0-5) Basophils (%) (Auto) 0.1% (0-3) Sodium Level 141mEq/L (134-144) Potassium Level 4.4mEq/L (3.5-5.2) Chloride Level 97mEq/L (97-108) Carbon Dioxide Level 27mmol/L (18-29) Blood Urea Nitrogen 20mg/dL (6-24) Creatinine 0.63mg/dL (0.57-1.00) Estimat Glomerular Filtration Rate 142mL/min (>59) Glucose Level 155mg/dL (60-99) Calcium Level 9.4mg/dL (8.5-10.1) Total Bilirubin 0.2mg/dL (0.0-1.2) Aspartate Amino Transf (AST/SGOT) 19U/L (0-50) Alanine Aminotransferase (ALT/SGPT) 37U/L (0-32) Alkaline Phosphatase 61U/L (25-150) Total Protein 6.6g/dL (6.4-8.4) Albumin 4.1g/dL (3.4-5.0) Triglycerides Level 102mg/dL (0-149) Cholesterol Level 256mg/dL (100-199) LDL Cholesterol, Calculated 136.600mg/dL (0-99) VLDL Cholesterol 20.400mg/dL HDL Cholesterol 99mg/dL (>39) Cholesterol/HDL Ratio 2.59 (0.0-4.4) Result Diagram: 07/01/16 0310 07/01/16 0310 Microbiology 06/29/16 MRSA (PCR)- pending 06/29/16 Streptococcus pneumoniae Ag Screen- pending. X-Rays, CTs and MRIs (06/29/16) X-RAY CHEST ONE VIEW, PORTABLE IMPRESSION: No acute process. Dictated and approved by: Nedra Torres M.D. on 06/29/2016 at 19:17 (06/30/16) X-RAY CHEST ONE VIEW, PORTABLE Cardiac Echo Impressions (06/30/16) ECHOCARDIOGRAM REPORT INTERPRETATION SUMMARY: -Normal both left and right ventricle size and function. -The ejection fraction is estimated to be 65-70%. -Mild tricuspid regurgitation. -The right ventricular systolic pressure is estimated at 49 mmHg assuming a right atrial pressure of 8 mm Hg. -Moderate pulmonary hypertension. Reading Physician: Nusrat Lozano on 06/30/2016 01:23 PM Additional Diagnostics ABG DateTimeAnalyzed 19:58:00 -_ pH ____7.295 - pCO2 ___54.6__ -mmHg pO2 ___53.2__ -mmHg HCO3- ___25.7__ -mmol/L Assessment & Plan Mrs. Lakeisha Alvarenga is a 55-year-old lady with a history of hypertension, COPD, asthma, and sleep apnea with nightly CPAP use who presented with a five day history of progressive shortness of breath and nonproductive cough. Admitted for acute hypoxic respiratory failure, possible COPD exacerbation and hypertensive urgency. Acute hypoxic respiratory failure, present on admission. Improving. -Likely combination of COPD exacerbation and congestive heart failure, less likely infectious. -Chest xray with no acute process. -Procalcitonin, S. pneumoniae/Legionella and respiratory viral PCR all negative. -Received ceftriaxone 2gmIV in the emergency dept and completed Zpack yesterday (06/28) -Continue ceftriaxone and start azithromycin. -Titrate supplemental oxygen as tolerated, goal O2 sats 88-92% -Duonebs Q4hrs while awake, albuterol Q2hrs as needed. -Echocardiogram showed an EF of 60-65% Acute COPD Exacerbation, present on admission. Active. -Patient received IV methyl Pred 125 mg every 8 hours overnight. -Continue oral prednisone, 40mg daily for 5 days. -Continue Duonebs, albuterol as above. Concern for congestive heart failure. Present on admission. Active. -No known history of heart failure and proBNP elevated on admission (351). Patient received 20mg IV furosemide on admission. -Echocardiogram, as above. -Clinically no signs/symptoms of fluid overload. Patient will need close outpatient followup. Hypertensive Urgency, acute on chronic. Present on admission. Active. -Likely secondary to recent medication changes. Patient previously treated with Lisinopril (discontinued due to cough) and recently Losartan/HCTZ (also discontinued recently due to cough). -BP 202/108 at presentation and dropped to 113/80 following Morphine and Lorazepam. After which she remained hypertensive with SBPs consistently in 140s- 160. -BP this morning 130s/80s. Continue losartan/hctz, 50mg daily (Started on 06/29) . Leukocytosis, acute. Present on admission. Active. -Likely secondary to stress response and recent outpatient steroids. Infection appears less likely with negative procalcitonin, negative respiratory panel and urine S. pneumo/Legionella antigens. -WBC 22.5 at presentation and down to 12.8 this morning (06/30). Trending up: 23.8 -Continue antibiotics as above and follow CBC -Consider repeat procalcitonin Hyperglycemia, unknown chronicity. Present on admission. Active. -Possibly secondary to steroids or underlying diabetes. Patient without prior diagnosis of COPD. Glucose on admission 117. -HbA1c 6.2 on 06/30. -Correctional insulin lispro Obstructive sleep apnea, chronic. Present on admission. Controlled. -Patient on home CPAP, continue supplemental O2 as needed and CPAP at night. Morbid obesity, chronic. Present on admission. Active. -BMI 40 -Counseled patient regarding lifestyle modifications. -Recommend close outpatient followup. Nicotine addiction, chronic. Present on admission. Active -Patient reports 1/2ppd -Nicotine patch -Counseled regarding cessation -Recommend close outpatient followup. Acetaminophen when necessary for pain Ondansetron when necessary for nausea Senna and docusate when necessary for constipation Disposition: Patient will likely discharge home in 1-2 days pending improvement in respiratory status. VTE Mechanical Devices: Anti-Embolic stockings Resuscitation Status: CPR: Attempt Resuscitation Attending Statement The patient was seen and examined together with Dr. Barrios on 07/01/2016 and I agree with the history, exam and plan as outlined in the note above. . Donna Barrios DO July 01, 2016 07:40 Jerzy Chambers MD July 01, 2016 12:04
[2016-07-01] MEDS: predniSONE 20 mg Tablet PO SCH (12:23)
--- NOTE | 2016-07-01 15:20 | NUR ---
Social Work- Brief Note Data: EMR reviewed. Pt is a 55 year old female admitted 06/30/16 for COPD Exacerbation per H&P. NOK is daughter Katherine Jeffries [phone], . Pt's insurance is [facility] and PCP is Mg Valenzuela MD. SYSTEMS DESIGN ENGINEER met with pt at bedside regarding discharge plan, SW role explained. Pt alert and oriented x3. Pt resides in [facility] where she is independent at baseline. Pt drives. PT has seen pt, pt likely to progress back to baseline. Pt reports ambulating independently in room between PT sessions. Pt uses no DME at baseline, but does have access to a bath bench, walk in shower, fww, and grab bars. Pt has no O2 at home. No discharge needs anticipated at this time. Pt to discharge home with family/friends to transport via POV. SYSTEMS DESIGN ENGINEER to follow for additional discharge needs. Assessment: Pt who is independent at baseline. Plan: Pt likely to progress to baseline mobility with PT. No discharge needs anticipated at this time. Pt to discharge home with family/friends to transport via POV. SYSTEMS DESIGN ENGINEER to follow for additional discharge needs. Dori Mcginnis MSW
--- NOTE | 2016-07-01 15:32 | NUR ---
Discharge from PT; ambulate w/Nsg Pt is restricted only by her respiratory status at this point and is discharged from further PT at this time. Pt is encouraged to ambulate w/nsg w/o AD CGA/SBA prn 2-3x/day as pt tolerates to increased activity tolerance,
[2016-07-01] MEDS: Heparin 5,000 Unit/mL Inj SUBQ SCH (16:36)
--- NOTE | 2016-07-01 18:17 | NUR ---
Transfer of Care, Prophylaxis 1045 - Transfer of Care from Karla Land RN to this nurse. Report received and introduced self to patient. 1442 - Noted that the patient did not have any DVT Prophylaxis ordered. Spoke to Dr. Barrios about this and she ordered subQ Heparin. Care continues.
[2016-07-01] MEDS: cefTRIAXone Inj 2,000 MG in Dextrose 5% Minibag Plus 50 ML IV SCH ×2 (20:36→22:42)
[2016-07-02] VITALS (11 sets, daily range): BP systolic 129–148; BP diastolic 80–89; PULSE 81–116; RESP 12–24; O2SAT 85–96
[2016-07-02] MEDS: Heparin 5,000 Unit/mL Inj SUBQ SCH ×3 (00:30→16:30)
[2016-07-02 03:31] LABS: BASOPHILS % (AUTO) 0.1 % (0-3); EOSINOPHILS % (AUTO) 0.2 % (0-5); MONOCYTES % (AUTO) 9.1 % (4-12); Mean Corpuscular Hemoglobin 31.7 pg (27.0-35.0); Mean Corpuscular Volume 97.8 fL (81-100); Platelet Count 292 bil/L (150-400)
--- NOTE | 2016-07-02 06:03 | NUR ---
Headache/cough pt c/o headache 1x this shift, administered 650mg Tylenol and effective, no further complaints. Pt continues to have loud bronchospastic coughing at times, PRN tesslon pearls given and effective. Pt on CPAP while sleeping and tolerates well. VSS and Tele SR
[2016-07-02] MEDS: Albuterol-Ipratropium 3 mL Inhalation Solution NEB SCH ×2 (07:59→12:40)
[2016-07-02] MEDS: Albuterol 2.5 mg/3 mL Inhalation Solution NEB PRN (08:07)
[2016-07-02] MEDS: predniSONE 20 mg Tablet PO SCH (08:57)
--- NOTE | 2016-07-02 13:48 | PCM.PNMED ---
Subjective Date of Service July 02, 2016 Subjective Mrs. Lakeisha Alvarenga is a 55-year-old lady with a history of hypertension, COPD, asthma, and sleep apnea with nightly CPAP use who presented with a five day history of progressive shortness of breath and nonproductive cough. Admitted for acute hypoxic respiratory failure, possible COPD exacerbation and hypertensive urgency. Patient is sitting up with oxymask in place and states that she is doing well. She reports pain in her abdomen and chest with coughing and states that she is ready to quit smoking. She states that she has been ambulating in the room without issue and upon closer look although the oxymask is in place, oxygen is off and patient with O2 sats in high 80s to low 90s on room air. Per nursing, patient continued to have bronchospastic coughing overnight that was relieved with tessalon perles, no acute events. Exam Vital Signs Vital Sign - Last Date Time Temp Pulse Resp B/P Pulse Ox O2 Delivery O2 Flow Rate FiO2 07/02/16 05:51 12 85 07/02/16 03:56 37.0 81 135/80 BiPAP 07/01/16 16:20 3.00 06/30/16 04:43 30 Intake and Output 07/01/16 07/01/16 07/02/16 Cumulative From/Thru 15:00 23:00 07:00 06/29/16 19:29 - 07/02/16 05:03 Intake Total 1040 ml 606 ml 2836 ml Output Total 325 ml 825 ml 3825 ml Balance 715 ml -219 ml -989 ml Intake Oral 1040 ml 550 ml 2670 ml IV Total 56 ml 166 ml Output Urine Total 325 ml 825 ml 3825 ml # Voids 7 # Bowel Movements 0 0 Exam General: Well developed, well nourished female in no acute distress. Appropriately interactive. HEENT: Normocephalic, atraumatic. Pupils equal, round, and reactive to light and accommodation. Facial flushing noted, xanthomas eyelid bilaterally, Anicteric sclerae. Oral mucosa moist/pink Neck: Supple, nontender, no JVD, lymphadenopathy or thyromegaly. Cardiovascular: Regular rate and regular rhythm no murmurs, rubs, or gallops appreciated Pulmonary: Lung sounds with mild expiratory wheezing bilaterally, no crackles or rhonchi. Normal respiratory effort GI: Bowel tones present. Soft and obese, nontender, nondistended. Extremities: Trace non-pitting lower extremity edema bilaterally, no cyanosis or clubbing. Skin: Warm, well perfused, anterior chest erythematous, no ulcerations. Neurological: Cranial nerves grossly intact, no focal deficit. Alert and oriented to person, place and time. Psychiatric: Normal mood and affect. IVs and Medications Medications Reviewed: Medications were reviewed in detail Lab and Diagnostics Laboratory Tests Test 07/02/16 03:00 White Blood Count 17.9th/mm3 (3.8-10.1) Red Blood Count 4.07mil/mm3 (3.90-5.20) Hemoglobin 12.9g/dL (12.0-15.6) Hematocrit 39.8% (35.0-46.0) Mean Corpuscular Volume 97.8fL (81-100) Mean Corpuscular Hemoglobin 31.7pg (27.0-35.0) Mean Corpuscular Hemoglobin Concent 32.4% (32.0-37.0) Red Cell Distribution Width 13.4% (12.3-15.4) Platelet Count 292bil/L (150-400) Neutrophils (%) (Auto) 61.0% (40-74) Lymphocytes (%) (Auto) 29.0% (14-46) Monocytes (%) (Auto) 9.1% (4-12) Eosinophils (%) (Auto) 0.2% (0-5) Basophils (%) (Auto) 0.1% (0-3) Sodium Level 140mEq/L (134-144) Potassium Level 4.7mEq/L (3.5-5.2) Chloride Level 98mEq/L (97-108) Carbon Dioxide Level 29mmol/L (18-29) Blood Urea Nitrogen 22mg/dL (6-24) Creatinine 0.66mg/dL (0.57-1.00) Estimat Glomerular Filtration Rate 134mL/min (>59) Glucose Level 127mg/dL (60-99) Calcium Level 9.2mg/dL (8.5-10.1) Total Bilirubin 0.2mg/dL (0.0-1.2) Aspartate Amino Transf (AST/SGOT) 21U/L (0-50) Alanine Aminotransferase (ALT/SGPT) 31U/L (0-32) Alkaline Phosphatase 55U/L (25-150) Total Protein 5.9g/dL (6.4-8.4) Albumin 3.6g/dL (3.4-5.0) Result Diagram: 07/02/16 0300 07/02/16 0300 Microbiology 06/29/16 MRSA (PCR) - negative 06/29/16 Streptococcus pneumoniae Ag Screen - negative 06/29/16 Respiratory viral panel- negative X-Rays, CTs and MRIs (06/29/16) X-RAY CHEST ONE VIEW, PORTABLE IMPRESSION: No acute process. Dictated and approved by: Nedra Torres M.D. on 06/29/2016 at 19:17 (06/30/16) X-RAY CHEST ONE VIEW, PORTABLE Cardiac Echo Impressions (06/30/16) ECHOCARDIOGRAM REPORT INTERPRETATION SUMMARY: -Normal both left and right ventricle size and function. -The ejection fraction is estimated to be 65-70%. -Mild tricuspid regurgitation. -The right ventricular systolic pressure is estimated at 49 mmHg assuming a right atrial pressure of 8 mm Hg. -Moderate pulmonary hypertension. Reading Physician: Nusrat Lozano on 06/30/2016 01:23 PM Additional Diagnostics ABG DateTimeAnalyzed 19:58:00 -_ pH ____7.295 - pCO2 ___54.6__ -mmHg pO2 ___53.2__ -mmHg HCO3- ___25.7__ -mmol/L Assessment & Plan Mrs. Lakeisha Alvarenga is a 55-year-old lady with a history of hypertension, COPD, asthma, and sleep apnea with nightly CPAP use who presented with a five day history of progressive shortness of breath and nonproductive cough. Admitted for acute hypoxic respiratory failure, possible COPD exacerbation and hypertensive urgency. Acute hypoxic respiratory failure, present on admission. Improving. -Likely combination of COPD exacerbation and congestive heart failure, possibly infectious. -Chest xray with no acute process. -Procalcitonin, S. pneumoniae/Legionella and respiratory viral PCR all negative. -Continue ceftriaxone and start azithromycin. -Titrate supplemental oxygen as tolerated, goal O2 sats 88-92% -Change Duonebs to Atrovent q4h and levalbuterol q2h prn -Echocardiogram showed an EF of 60-65% Acute COPD Exacerbation, present on admission. Active. -Patient received IV methyl Pred 125 mg every 8 hours overnight. -Continue oral prednisone, 40mg daily for 5 days. -Antibiotics and nebulizers, as above -Start tiotropium and budesonide formoterol inhalers. Concern for congestive heart failure. Present on admission. Active. -No known history of heart failure and proBNP elevated on admission (351). -Echocardiogram, as above. -Clinically no signs/symptoms of fluid overload. -Patient will need close outpatient followup. Hypertensive Urgency, acute on chronic. Present on admission. Improving -Likely secondary to recent medication changes. Patient previously treated with Lisinopril (discontinued due to cough) and recently Losartan/HCTZ (also discontinued recently due to cough). -Will discontinue losartan as this could potentially be contributing to her persistent cough. -Continue hydrochlorothiazide 12.5mg po daily. Leukocytosis, acute. Present on admission. Improving -Likely secondary to stress response and recent outpatient steroids and possibly infection although this appears less likely with negative procalcitonin , viral PCR, S. pneumo and legionella antigens. -WBC 22.5 at presentation and trending down, most recent 17.9 -Continue antibiotics as above and follow CBC -Consider repeat procalcitonin Hyperglycemia, unknown chronicity. Present on admission. Active. -Possibly secondary to steroids or underlying diabetes. Patient without prior diagnosis of COPD. Glucose on admission 117. -HbA1c 6.2 on 06/30. -Correctional insulin lispro Obstructive sleep apnea, chronic. Present on admission. Controlled. -Patient on home CPAP, continue supplemental O2 as needed and CPAP at night. Morbid obesity, chronic. Present on admission. Active. -BMI 40 -Counseled patient regarding lifestyle modifications. -Recommend close outpatient followup. Nicotine addiction, chronic. Present on admission. Active -Patient reports 1/2ppd -Counseled regarding cessation -Recommend close outpatient followup. Acetaminophen when necessary for pain Ondansetron when necessary for nausea Senna and docusate when necessary for constipation Disposition: Patient will likely discharge home in 1-2 days pending improvement in respiratory status. Pain Evaluation: Adequate Pain Control VTE Mechanical Devices: Anti-Embolic stockings Resuscitation Status: CPR: Attempt Resuscitation Attending Statement The patient was seen and examined together with Dr. Barrios on 07/02/2016 and I agree with the history, exam and plan as outlined in the note above. . Donna Barrios DO July 02, 2016 07:49 Jerzy Chambers MD July 03, 2016 08:02
--- NOTE | 2016-07-02 16:14 | NUR ---
Respiratory status Pt has been tolerating room air with no issues. Pt has made three loops around the unit on RA and stayed around 91%. Occasionally she dips into the high 80s when she is coughing. Tessalon Pearls were given for coughing attacks X2 this shift with good results. Pt coughed up a moderate amount of thick yellow sputum this morning but has not coughed anything up since. Lung sounds are decreased throughout with wheezes heard bilaterally.
[2016-07-02] MEDS: Albuterol 2.5 mg/3 mL Inhalation Solution NEB SCH (20:10)
[2016-07-02] MEDS: Fluticasone-Salmeterol 500-50 Inhaler INHALATION SCH (20:27)
[2016-07-02] MEDS: guaiFENesin 600 mg ER12 Tablet PO SCH (20:27)
[2016-07-02] MEDS: cefTRIAXone Inj 2,000 MG in Dextrose 5% Minibag Plus 50 ML IV SCH (20:28)
[2016-07-03] MEDS: Heparin 5,000 Unit/mL Inj SUBQ SCH ×2 (00:30→07:54)
[2016-07-03 03:32] VITALS: BP 156/81; PULSE 84; RESP 24; O2SAT 93
[2016-07-03 03:37] LABS: BASOPHILS % (AUTO) 0.5 % (0-3); EOSINOPHILS % (AUTO) 0.2 % (0-5); MONOCYTES % (AUTO) 9.9 % (4-12); Mean Corpuscular Hemoglobin 31.4 pg (27.0-35.0); Mean Corpuscular Volume 97.4 fL (81-100); NEUTROPHILS % (AUTO) 49.9 % (40-74); Platelet Count 284 bil/L (150-400)
[2016-07-03] MEDS: Albuterol 2.5 mg/3 mL Inhalation Solution NEB SCH ×2 (05:30→11:32)
[2016-07-03 05:31] VITALS: PULSE 84; RESP 22; O2SAT 94
[2016-07-03] MEDS: predniSONE 20 mg Tablet PO SCH (07:48)
[2016-07-03] MEDS: Fluticasone-Salmeterol 500-50 Inhaler INHALATION SCH (07:49)
[2016-07-03] MEDS: guaiFENesin 600 mg ER12 Tablet PO SCH (07:52)
[2016-07-03] MEDS ORDERED: Tiotropium 18mcg/Cap 5 Capsule Inhaler Kit INHALATION SCH (08:30)
[2016-07-03 09:04] VITALS: BP 128/73; PULSE 92; RESP 20; O2SAT 92
--- NOTE | 2016-07-03 09:10 | PCM.PNMED ---
Subjective Date of Service July 03, 2016 Subjective Mrs. Lakeisha Alvarenga is a 55-year-old lady with a history of hypertension, COPD, asthma, and sleep apnea with nightly CPAP use who presented with a five day history of progressive shortness of breath and nonproductive cough. Admitted for acute hypoxic respiratory failure, possible COPD exacerbation and hypertensive urgency. Patient is up sitting in the chair this morning, breathing comfortably on room air with oxygen sats in low to mid 90s. She reports ongoing productive cough but states that the sputum is now clear and she feels she is clearing her lungs. She denies chest pain, fever, chills, abdominal pain, nausea, vomiting, diarrhea or constipation. Per nursing, patient tolerated room air and maintained oxygen sats in the low 90s with ambulation. She occasionally down into the high 80s with coughing. Exam Vital Signs Vital Sign - Last Date Time Temp Pulse Resp B/P Pulse Ox O2 Delivery O2 Flow Rate FiO2 07/03/16 05:31 84 22 94 Room Air 07/03/16 03:32 36.4 156/81 07/02/16 08:08 7.00 06/30/16 04:43 30 Intake and Output 07/02/16 07/02/16 07/03/16 Cumulative From/Thru 15:00 23:00 07:00 06/29/16 19:29 - 07/03/16 06:25 Intake Total 2150 ml 880 ml 5866 ml Output Total 600 ml 4425 ml Balance 1550 ml 880 ml 1441 ml Intake Oral 2150 ml 800 ml 5620 ml IV Total 80 ml 246 ml Output Urine Total 600 ml 4425 ml # Voids 6 9 22 # Bowel Movements 2 2 4 Exam General: Well developed, well nourished female in no acute distress. Appropriately interactive. HEENT: Normocephalic, atraumatic. Pupils equal, round, and reactive to light and accommodation, xanthomas eyelid bilaterally, Anicteric sclerae. Oral mucosa moist/pink Neck: Supple, nontender, no JVD, lymphadenopathy or thyromegaly. Cardiovascular: Regular rate and regular rhythm no murmurs, rubs, or gallops appreciated Pulmonary: Lung clear to auscultation bilaterally with no wheezing, rales or rhonchi. Normal respiratory effort GI: Bowel tones present. Soft and obese, nontender, nondistended. Extremities: Trace non-pitting lower extremity edema bilaterally, no cyanosis or clubbing. Skin: Warm, well perfused, no ulcerations. Neurological: Cranial nerves grossly intact, no focal deficit. Alert and oriented to person, place and time. Psychiatric: Normal mood and affect. IVs and Medications Medications Reviewed: Medications were reviewed in detail Lab and Diagnostics Laboratory Tests Test 07/03/16 03:22 White Blood Count 15.0th/mm3 (3.8-10.1) Red Blood Count 4.17mil/mm3 (3.90-5.20) Hemoglobin 13.1g/dL (12.0-15.6) Hematocrit 40.6% (35.0-46.0) Mean Corpuscular Volume 97.4fL (81-100) Mean Corpuscular Hemoglobin 31.4pg (27.0-35.0) Mean Corpuscular Hemoglobin Concent 32.3% (32.0-37.0) Red Cell Distribution Width 13.2% (12.3-15.4) Platelet Count 284bil/L (150-400) Neutrophils (%) (Auto) 49.9% (40-74) Lymphocytes (%) (Auto) 38.8% (14-46) Monocytes (%) (Auto) 9.9% (4-12) Eosinophils (%) (Auto) 0.2% (0-5) Basophils (%) (Auto) 0.5% (0-3) Sodium Level 140mEq/L (134-144) Potassium Level 4.5mEq/L (3.5-5.2) Chloride Level 98mEq/L (97-108) Carbon Dioxide Level 30mmol/L (18-29) Blood Urea Nitrogen 27mg/dL (6-24) Creatinine 0.94mg/dL (0.57-1.00) Estimat Glomerular Filtration Rate 89mL/min (>59) Glucose Level 121mg/dL (60-99) Calcium Level 8.9mg/dL (8.5-10.1) Total Bilirubin 0.2mg/dL (0.0-1.2) Aspartate Amino Transf (AST/SGOT) 24U/L (0-50) Alanine Aminotransferase (ALT/SGPT) 33U/L (0-32) Alkaline Phosphatase 57U/L (25-150) Total Protein 6.0g/dL (6.4-8.4) Albumin 3.6g/dL (3.4-5.0) Result Diagram: 07/03/16 0322 07/03/16 0322 Microbiology 06/29/16 MRSA (PCR) - negative 06/29/16 Streptococcus pneumoniae Ag Screen - negative 06/29/16 Respiratory viral panel- negative X-Rays, CTs and MRIs (06/29/16) X-RAY CHEST ONE VIEW, PORTABLE IMPRESSION: No acute process. Dictated and approved by: Nedra Torres M.D. on 06/29/2016 at 19:17 (06/30/16) X-RAY CHEST ONE VIEW, PORTABLE Cardiac Echo Impressions (06/30/16) ECHOCARDIOGRAM REPORT INTERPRETATION SUMMARY: -Normal both left and right ventricle size and function. -The ejection fraction is estimated to be 65-70%. -Mild tricuspid regurgitation. -The right ventricular systolic pressure is estimated at 49 mmHg assuming a right atrial pressure of 8 mm Hg. -Moderate pulmonary hypertension. Reading Physician: Nusrat Lozano on 06/30/2016 01:23 PM Additional Diagnostics ABG DateTimeAnalyzed 19:58:00 -_ pH ____7.295 - pCO2 ___54.6__ -mmHg pO2 ___53.2__ -mmHg HCO3- ___25.7__ -mmol/L Assessment & Plan Mrs. Lakeisha Alvarenga is a 55-year-old lady with a history of hypertension, COPD, asthma, and sleep apnea with nightly CPAP use who presented with a five day history of progressive shortness of breath and nonproductive cough. Admitted for acute hypoxic respiratory failure, possible COPD exacerbation and hypertensive urgency. Acute hypoxic respiratory failure, present on admission. Resolved -Likely combination of COPD exacerbation and congestive heart failure, possibly infectious. -Chest xray with no acute process. -Procalcitonin, S. pneumoniae/Legionella and respiratory viral PCR all negative. -Continue ceftriaxone and azithromycin. -Currently on room air, will ambulate patient and monitor oxygen sats, goal O2 sats 88-92% -Atrovent q4h, levalbuterol q2h as needed -Echocardiogram showed an EF of 60-65% Acute COPD Exacerbation, present on admission. Resolved. -Patient received IV methyl Pred 125 mg on admission. -Continue oral prednisone, 40mg daily for 5 days. -Antibiotics and nebulizers, as above -Continue tiotropium and budesonide formoterol inhalers. Concern for congestive heart failure. Present on admission. Active. -No known history of heart failure and proBNP elevated on admission (351). -Echocardiogram, as above. -Clinically no signs/symptoms of fluid overload. -Patient will need close outpatient followup. Hypertensive Urgency, acute on chronic. Present on admission. Improving -Likely secondary to recent medication changes. Patient previously treated with Lisinopril (discontinued due to cough) and recently Losartan/HCTZ (also discontinued recently due to cough). -Losartan discontinued on 07/02 as this could potentially be contributing to her persistent cough. -Continue hydrochlorothiazide 12.5mg po daily. Leukocytosis, acute. Present on admission. Improving -Likely secondary to stress response and recent outpatient steroids and possibly infection although this appears less likely with negative procalcitonin , viral PCR, S. pneumo and legionella antigens. -WBC 22.5 at presentation and trending down, most recent 15.0 -Continue antibiotics as above and follow CBC -Consider repeat procalcitonin Pre-diabetes, unknown chronicity. Present on admission. Active. -Hyperglycemia at presentation without known diagnosis of diabetes. Attributed to steroids or possibly underlying diabetes. Now more consistent with pre- diabetes with a HbA1c of 6.2 on 06/30. -Correctional insulin lispro Obstructive sleep apnea, chronic. Present on admission. Controlled. -Patient on home CPAP, continue supplemental O2 as needed and CPAP at night. Morbid obesity, chronic. Present on admission. Active. -BMI 40 -Counseled patient regarding lifestyle modifications. -Recommend close outpatient followup. Nicotine addiction, chronic. Present on admission. Active -Patient reports 1/2ppd -Counseled regarding cessation -Recommend close outpatient followup. Acetaminophen when necessary for pain Ondansetron when necessary for nausea Senna and docusate when necessary for constipation Disposition: Patient will likely discharge home in 1-2 days pending improvement in respiratory status. Pain Evaluation: Adequate Pain Control VTE Mechanical Devices: Anti-Embolic stockings Resuscitation Status: CPR: Attempt Resuscitation Attending Statement The patient was seen and examined together with Dr. Barrios on 07/04/2016 and I agree with the history, exam and plan as outlined in the note above. . Donna Barrios DO July 03, 2016 07:12 Jerzy Chambers MD July 04, 2016 14:33
--- NOTE | 2016-07-03 09:33 | PCM.DIMED ---
Donna Barrios DO 07/03/16 0910: Discharge Instructions Date of Service July 03, 2016 Dates of Hospitalization June 29, 2016 at 21:13 Discharge Diagnosis Discharge Diagnosis COPD exacerbation Hypertensive emergency Obstructive sleep apnea Pre-diabetes Obesity Nicotine addiction Medication Instructions Some changes were made to your medications during this hospital stay and are listed below. Please review these changes with Dr. Valenzuela. Additionally, if you are having any difficulty with nicotine cravings or would like additional help with quitting talk with Dr. Valenzuela as we discussed. START the following medications: Spiriva (tiotropium) inhaler Advair (fluticasone/salmeterol) inhaler Hydrochlorothiazide 12.5mg. Take 1/2 tablet by mouth once daily. Cefpodoxime (antibiotic) 200mg tablets. Take one tablet by mouth this evening. Then take one tablet by mouth every 12 hours until gone. Azithromycin (antibiotic) 250mg tablets. Take one tablet by mouth once daily until gone. Prednisone 40mg tablets. Take one tablet by mouth once daily until gone. STOP the following medication: Losartan. Diet Heart Healthy Activity No restrictions Call your provider Fever or Chills, Shortness of breath, Chest pain, Excessive diarrhea, Weakness ( unilateral), Other (If you develop any new or concerning symptoms, not listed here, contact your primary care pattern assembler. ) Patient Instructions It is important that you followup with your primary care provider, Dr. Valenzuela within the next week for a blood pressure check and to discuss this hospital stay, medication changes and smoking cessation. Follow-up plan Mg Valenzuela MD [facility] [address], [place] [id number] . Follow-up Provider: Mg Valenzuela MD Follow-up with PCP in: 1 week Jerzy Chambers MD 07/04/16 1433: Discharge Instructions Attending's Statement The patient was seen and examined together with Dr. Barrios on 07/03/2016 and I agree with the history, exam and plan as outlined in the note above. . Donna Barrios DO July 03, 2016 09:10 Jerzy Chambers MD July 04, 2016 14:33
--- NOTE | 2016-07-03 10:40 | PCM.DC.MED ---
Discharge Summary Date of Service July 03, 2016 Dates of Hospitalization Date of Hospital Admission June 29, 2016 at 21:13 Date of Discharge: July 03, 2016 Providers: Admitting Physician: Dorothy Jackson DO Primary Care Physician: Mg Valenzuela MD Attending Physician: Dorothy Jackson DO Diagnosis at Time of Discharge Diagnosis at Time of Discharge Acute hypoxic respiratory failure Acute COPD Exacerbation Heart failure, diastolic Hypertensive Urgency Leukocytosis Pre-diabetes Obstructive sleep apnea Morbid obesity Nicotine addiction Procedures XRay, CTs & MRIs (06/29/16) X-RAY CHEST ONE VIEW, PORTABLE IMPRESSION: No acute process. Dictated and approved by: Nedra Torres M.D. on 06/29/2016 at 19:17 (06/30/16) X-RAY CHEST ONE VIEW, PORTABLE Cardiac Echo Impression (06/30/16) ECHOCARDIOGRAM REPORT INTERPRETATION SUMMARY: -Normal both left and right ventricle size and function. -The ejection fraction is estimated to be 65-70%. -Mild tricuspid regurgitation. -The right ventricular systolic pressure is estimated at 49 mmHg assuming a right atrial pressure of 8 mm Hg. -Moderate pulmonary hypertension. Reading Physician: Nusrat Lozaon on 06/30/2016 01:23 PM Other Diagnostics ABG DateTimeAnalyzed 19:58:00 -_ pH ____7.295 - pCO2 ___54.6__ -mmHg pO2 ___53.2__ -mmHg HCO3- ___25.7__ -mmol/L Brief History Per admission history and physical on June 29, 2016. Abdoulaye Key DO Mrs. Lakeisha Alvarenga is a pleasant 55-year-old perimenopausal female with a past medical history significant for hypertension, COPD and asthma, and sleep apnea with nightly CPAP use, who presents to the [facility] emergency Department by way of EMS today for shortness of breath and cough. She reports increasing cough and shortness of breath since 06/26/2016. She visited her primary care physician on Wednesday who prescribed a prednisone taper starting at 40 mg daily as well as a Z-Rohan. Throughout the weekend her cough and shortness of breath increased in severity until today she felt extreme dyspnea and called EMS. Her losartan and hydrochlorothiazide 100 mg daily was recently discontinued due to increased cough. She has a history of cough with lisinopril roughly a year ago at which point losartan and hydrochlorothiazide were prescribed at 50 mg daily, unknown hydrochlorothiazide dose at this time and her blood pressure was maintained roughly systolics around 148/95. She is a long line haul owner operator for [employer] and had her DOT physical coming up in her physician increased her losartan dose from 50 mg to 100 mg daily on July 02. Since that point she developed increasing cough similar to her previous bouts with lisinopril and on Wednesday of last week 06/25/2016, her PCP stopped her antihypertensive medication. Immediately following this she developed worsening nonproductive cough, wheezing, extreme lower extremity edema to the knees. She has Qvar and pro-air for COPD and asthma and has increased her use of albuterol the last 5 days from 2 puffs per day on average to 6-10 puffs per day. She has a long history of tobacco use most recently a half pack per day and a long history of 2 packs per day however she has not had a cigarette since of last week. She reports hot flashes that she claims is from menopause, chest pain from increased coughing, shortness of breath and cough, dizziness and some mild change in vision these last 4 days. She denies fever, chills, nausea, vomiting, change in appetite, cardiac or musculoskeletal chest pain, abdominal pain, abnormal diarrhea or constipation, dysuria. She denies sick contacts. She does not have a advisor to command in combat or flat bed knitter. In the emergency department she received several rounds of albuterol nebulizers , 6 mg morphine, and Ativan, methylprednisolone 125 mg, On admission she was afebrile tachycardic and tachypneic at 115 and 22, pulse ox of 93 on 7 L O2 mask. Hospital Course Mrs. Lakeisha Alvarenga is a 55-year-old lady with a history of hypertension, COPD, asthma, and sleep apnea with nightly CPAP use who presented with a five day history of progressive shortness of breath and nonproductive cough. Admitted for acute hypoxic respiratory failure, possible COPD exacerbation and hypertensive urgency. Acute hypoxic respiratory failure, present on admission. Treated/resolved -Likely combination of COPD exacerbation and congestive heart failure. Less likely infectious. -Chest xray was negative for acute process or focal consolidation -Procalcitonin, S. pneumoniae/Legionella and respiratory viral PCR all negative. -Patient received ceftriaxone (06/29-07/03) and azithromycin (07/02-07/03) as well as oral prednisone, 40mg daily (07/01-07/03). -Patient discharged with cefpodoxime 200mg Q12h for one more day to complete 5 day course, azithromycin 250mg daily for two more days to complete 5 day course. -Received supplemental oxygen and this was titrated down as tolerated to maintain O2 sats 88-92%. Patient maintaining O2 sats on room in the low to mid 90s with ambulation at time of discharge. -Patient received atrovent q4h, levalbuterol q2h as needed -Echocardiogram showed an EF of 60-65% Acute COPD Exacerbation, present on admission. Treated/resolved -Patient received IV methyl Pred 125 mg on admission. -Patient received oral prednisone, antibiotics and nebulizers as above. -Started tiotropium and fluticasone/salmeterol inhalers and these were continued at discharge. -Recommend outpatient followup for jail inhaler management. Concern for congestive heart failure. Present on admission. Presumed stable -Patient without known history of heart failure and a proBNP that was elevated on admission (351). -Echocardiogram, consistent with diastolic dysfunction. Results as above. -Clinically patient was without signs/symptoms of fluid overload. -Recommend close outpatient followup. Hypertensive Urgency, acute on chronic. Present on admission. Treated, acutely resolved. -Likely secondary to recent medication changes. Patient previously treated with Lisinopril (discontinued due to cough) and recently Losartan/HCTZ (also discontinued recently due to cough). -Losartan was resumed at 50mg daily on 06/29 and discontinued on 07/02 as this could potentially been contributing to her persistent cough. -Patient was continued on hydrochlorothiazide 12.5mg po daily. -Considered amlodipine as additional therapy and advised patient to discuss blood pressure management with Dr. Valenzuela Leukocytosis, acute. Present on admission. Improving -Likely secondary to stress response and recent outpatient steroids and possibly infection although this appears less likely with negative procalcitonin , viral PCR, S. pneumo and legionella antigens. -WBC 22.5 at presentation and trended down, most recent 15.0 -Patient received antibiotics as above and CBC followed daily. Pre-diabetes, unknown chronicity. Present on admission. Presumed stable. -Hyperglycemia at presentation without known diagnosis of diabetes. Initially attributed to steroids and possibly underlying diabetes.HbA1c 6.2 on 06/30 consistent with pre-diabetes. -Correctional insulin lispro Obstructive sleep apnea, chronic. Present on admission. Controlled. -Patient was continued on home CPAP at night and supplemental oxygen as needed during the day. Morbid obesity, chronic. Present on admission. Active. -BMI 40 -Counseled patient regarding lifestyle modifications. -Recommend close outpatient followup. Nicotine addiction, chronic. Present on admission. Active -Patient reports 1/2ppd -Counseled regarding cessation -Recommend close outpatient followup. -Advised patient to discuss cessation aides with Dr. Valenzuela. Exam Vital Signs (Last) Date Time Temp Pulse Resp B/P Pulse Ox O2 Delivery O2 Flow Rate FiO2 07/03/16 09:04 36.6 92 20 128/73 92 Room Air 07/02/16 08:08 7.00 06/30/16 04:43 30 Exam General: Well developed, well nourished female in no acute distress. Appropriately interactive. HEENT: Normocephalic, atraumatic. Pupils equal, round, and reactive to light and accommodation, xanthomas eyelid bilaterally, Anicteric sclerae. Oral mucosa moist/pink Neck: Supple, nontender, no JVD, lymphadenopathy or thyromegaly. Cardiovascular: Regular rate and regular rhythm no murmurs, rubs, or gallops appreciated Pulmonary: Lung clear to auscultation bilaterally with no wheezing, rales or rhonchi. Normal respiratory effort GI: Bowel tones present. Soft and obese, nontender, nondistended. Extremities: Trace non-pitting lower extremity edema bilaterally, no cyanosis or clubbing. Skin: Warm, well perfused, no ulcerations. Neurological: Cranial nerves grossly intact, no focal deficit. Alert and oriented to person, place and time. Psychiatric: Normal mood and affect. Test 06/29/16 18:54 06/29/16 23:10 06/30/16 05:45 07/01/16 03:10 Hold Purple Top Tube Received (Received) Phosphorus Level 4.9mg/dL (2.5-4.9) Troponin T < 0.010ug/L (0.0-0.011) Pro-B-Type Natriuretic Peptide 350.1pg/mL (0-249) Hold [place] Top Tube Received (Received) Urine Color Straw (YELLOW) Urine Appearance Hazy (CLEAR,HAZY) Urine pH 5.5 (5.0-8.0) Urine Specific [place] 1.015 (1.003-1.035) Urine Protein Negativemg/dL (NEG,TRACE) Urine Glucose (UA) Negativemg/dL (NEGATIVE) Urine Ketones Negativemg/dL (NEGATIVE) Urine Occult Blood Negative (NEGATIVE) Urine Nitrite Negative (NEGATIVE) Urine Bilirubin Negative (NEGATIVE) Urine Urobilinogen Normalmg/dL (NORMAL) Urine Leukocyte Esterase Negative (NEGATIVE) Urine RBC 0-2/hpf (0-2) Urine WBC 0-5/hpf (0-5) Urine Epithelial Cells Occasional/hpf (NONE-MOD) Urine Crystals None seen (NONE SEEN) Urine Bacteria Few/hpf (NONE-FEW) Urine Hyaline Casts None/lpf (NONE) Urine Granular Casts None seen (NONE SEEN) Urine Waxy Casts None seen (NONE SEEN) Urine Red Blood Cell Casts None seen (NONE SEEN) Urine White Blood Cell Casts None seen (NONE SEEN) Urine Mucus None seen (None Seen) Urine Trichomonas None seen (NONE SEEN) Urine Yeast None (NONE SEEN) Urinalysis Comment None Urine Culture Reflexed Not indicated Urine Legionella pneumophilia Ag Negative (Negative) Hemoglobin A1c 6.2% (4.8-5.6) Procalcitonin 0.05ng/mL (0.00-0.08) Triglycerides Level 102mg/dL (0-149) Cholesterol Level 256mg/dL (100-199) LDL Cholesterol, Calculated 136.600mg/dL (0-99) VLDL Cholesterol 20.400mg/dL HDL Cholesterol 99mg/dL (>39) Cholesterol/HDL Ratio 2.59 (0.0-4.4) Test 07/03/16 03:22 White Blood Count 15.0th/mm3 (3.8-10.1) Red Blood Count 4.17mil/mm3 (3.90-5.20) Hemoglobin 13.1g/dL (12.0-15.6) Hematocrit 40.6% (35.0-46.0) Mean Corpuscular Volume 97.4fL (81-100) Mean Corpuscular Hemoglobin 31.4pg (27.0-35.0) Mean Corpuscular Hemoglobin Concent 32.3% (32.0-37.0) Red Cell Distribution Width 13.2% (12.3-15.4) Platelet Count 284bil/L (150-400) Neutrophils (%) (Auto) 49.9% (40-74) Lymphocytes (%) (Auto) 38.8% (14-46) Monocytes (%) (Auto) 9.9% (4-12) Eosinophils (%) (Auto) 0.2% (0-5) Basophils (%) (Auto) 0.5% (0-3) Sodium Level 140mEq/L (134-144) Potassium Level 4.5mEq/L (3.5-5.2) Chloride Level 98mEq/L (97-108) Carbon Dioxide Level 30mmol/L (18-29) Blood Urea Nitrogen 27mg/dL (6-24) Creatinine 0.94mg/dL (0.57-1.00) Estimat Glomerular Filtration Rate 89mL/min (>59) Glucose Level 121mg/dL (60-99) Calcium Level 8.9mg/dL (8.5-10.1) Total Bilirubin 0.2mg/dL (0.0-1.2) Aspartate Amino Transf (AST/SGOT) 24U/L (0-50) Alanine Aminotransferase (ALT/SGPT) 33U/L (0-32) Alkaline Phosphatase 57U/L (25-150) Total Protein 6.0g/dL (6.4-8.4) Albumin 3.6g/dL (3.4-5.0) Microbiology Results 06/29/16 MRSA (PCR) - negative 06/29/16 Streptococcus pneumoniae Ag Screen - negative 06/29/16 Respiratory viral panel- negative Discharge Medications Discharge Medications Azithromycin (Zithromax) 250 Mg Tablet 250 MG PO DAILY Prescribed by: FRANCO BLANCHARD DO Cefpodoxime Proxetil (Cefpodoxime Proxetil) 200 Mg Tablet 200 MG PO Q12H Prescribed by: FRANCO BLANCHARD DO Fluticasone/Salmeterol (Advair 500-50 Diskus) 1 Each Disk.w.dev 1 PUFF INHALATION BID Prescribed by: FRANCO BLANCHARD DO Hydrochlorothiazide (Hydrochlorothiazide) 25 Mg Tablet 12.5 MG PO DAILY Prescribed by: FRANCO BLANCHARD DO Prednisone (Deltasone) 20 Mg Tablet 40 MG PO DAILY Prescribed by: FRANCO BLANCHARD DO Tiotropium Jewell (Spiriva) 18 Mcg Cap.w.dev 18 MCG INHALATION DAILY Prescribed by: FRANCO BLANCHARD DO As needed Albuterol HFA (Proair HFA) 8.5 Gm Hfa.aer.ad 2 PUFFS INHALATION Q4H PRN PRN For Shortness of Breath (Reported) Benzonatate (Benzonatate) 100 Mg Capsule 200 MG PO TID PRN PRN For Cough Prescribed by: FRANCO BLANCHARD DO Additional med instructions Some changes were made to your medications during this hospital stay and are listed below. Please review these changes with Dr. Valenzuela. START the following medications: Followup Plan Follow-up plan Mg Valenzuela MD [facility] [address] [place] [address] . Discharge Diet: Heart Healthy Discharge Activity: No restrictions Patient Instructions It is important that you followup with your primary care provider, Dr. Valenzuela within the next week for a blood pressure check and to discuss this hospital stay, medication changes and smoking cessation. Follow-up Provider: Mg Valenzuela MD Follow-up with PCP in: 1 week Time spent Greater than 30 minutes was spent in preparation of discharge with greater than 50% of that time dedicated to patient counseling and coordination of care. . Attending Statement The patient was seen and examined together with Dr. Blanchard on 07/03/2016 and I agree with the history, exam and plan as outlined in the note above. . copies to: Mg Valenzuela MD, Courtney M DO July 03, 2016 10:40 Jerzy Chambers MD July 04, 2016 14:35
[2016-07-03] MEDS ORDERED: PRED-508 PO (11:06)
[2016-07-03] MEDS ORDERED: FLUT1DIS5 INHALATION (11:06)
[2016-07-03] MEDS ORDERED: TIOT18CA3 INHALATION (11:06)
[2016-07-03] MEDS ORDERED: ZIT250 PO (11:06)
[2016-07-03] MEDS ORDERED: BENZ100C8 PO (11:06)
[2016-07-03 11:33] VITALS: PULSE 102; RESP 22; O2SAT 92
[2016-07-03] MEDS ORDERED: CEFP200T3 PO (12:06)
[2016-07-03] MEDS ORDERED: HYDR25TA4 PO (12:14)
--- NOTE | 2016-07-03 14:26 | NUR ---
Discharge Pt was provided educational packets along with her discharge packet. Pt and RN signed final page of packet. Pt demonstrated understanding of teaching. Pt understand what medications she is to take upon discharge. Pt was not on telemetry anymore at time of DC. IV was removed. Pt was escorted out by a friend and a staff member around 1420 with all personal belongings.
== END 2016-07-03 14:15 | disposition home or self-care (01) | DRG 190 ==
LOC: SED 18:47 → CCU 21:13 → PCC 06-30 11:32
PROVIDERS: ADMIT Internal Medicine; ATTEND Internal Medicine
PROC: 4A033R1 Measurement of Arterial Saturation, Peripheral, Percutaneous Approach (ICD-10-PCS; principal; 2016-06-29)
DX: J44.1 Chronic obstructive pulmonary disease with (acute) exacerbation (principal); J96.01 Acute respiratory failure with hypoxia; I50.30 Unspecified diastolic (congestive) heart failure; F17.210 Nicotine dependence, cigarettes, uncomplicated; I10 Essential (primary) hypertension; E66.01 Morbid (severe) obesity due to excess calories; G47.33 Obstructive sleep apnea (adult) (pediatric); D72.829 Elevated white blood cell count, unspecified; N39.3 Stress incontinence (female) (male); I16.0 Hypertensive urgency; Z68.38 Body mass index [BMI] 38.0-38.9, adult; R73.03 Prediabetes